=== PATIENT | male | born 1995 | race Caucasian/White ===

== ENCOUNTER 2025-04-19 17:29 | Emergency (ER) | payer OTHER, SELFPAY ==
[2025-04-19 17:32] VITALS: BP 166/85
--- NOTE | 2025-04-19 18:13 | ED.GENMED ---
History of Present Illness
General
Chief Complaint: Male Genito-Urinary Symptoms
Source: patient
Time Seen by Provider: 04/19/25 17:44
History of Present Illness
History of Present Illness:
Note:
CHIEF COMPLAINT(S)
Post-traumatic erectile dysfunction following penile trauma.
HISTORY OF PRESENT ILLNESS
The patient is a 29-year-old male who presented following reported trauma to the penis, which occurred when he fell the floor after getting up from bed and tripping while trying to go to the bathrom, patient reporting he had an erection at the time.
He reports that upon impact, his erection became flaccid immediately, but he did not experience significant pain initially or thereafter. He attempted to achieve an erection later that night, which was partially successful but described as 'soft.'
Over the subsequent days, he has been unable to achieve a full erection. He denies any penile pain, swelling, deformity, or significant urinary symptoms since the trauma. He has had normal urination without blood or discomfort and only minor twinges
but no persistent pain.
REVIEW OF SYSTEMS
- Genitourinary: Difficulty achieving a full erection post-trauma. No pain, swelling, or urinary symptoms noted.
- Additional systems were not discussed.
Past History
Past History
ED Past Medical History: Other (Psoriasis)
ED Past Surgical History: None
Social History
Tobacco: Non-smoker
Alcohol: Occasional
Drug: None
Personal: Single
Living: alone
Review of Systems
Review of Systems
All Other Systems: ROS reviewed and negative except as documented in HPI and ROS
Phy Exam
Physical Exam
Physical Exam:
GENERAL: Alert , in no apparent distress
EYE: conjunctiva clear
Head: Normocephalic atraumatic
NECK: Supple,
ENT: mmm.
LUNGS: no acute respiratory distress
GENITOURINARY: Circumcised. There is no penile swelling, edema, ecchymosis, abrasions or lacerations. No urethral discharge or blood, testicles nontender and nonedematous, no hernias appreciated. Positive cremasteric reflex bilateral
NEUROLOGICAL: Alert and oriented
SKIN: Warm and dry, skin intact.
MUSCULOSKELETAL: well perfused.
PSYCH: Normal and appropriate interaction.
Scores
Heart Failure Risk
Heart Failure Risk Score: Not Applicable
Heart Score for Chest Pain Patients
STEMI patient?: Not applicable
Withdrawal Assessment of Alcohol
Withdrawal Assessment Completed?: Not applicable
Course
Orders/Labs/Results
Orders:
Orders
04/19/25 18:08
Urinalysis Reflex To Culture Urgent
Date Specimen was Collected: 04/19/25
Time Specimen was Collected: 18:07
Urine Microscopic Reflex Cult Urgent
Abnormal Lab Results
04/19/25
18:08
Urine Ketones 3+ A
(Negative)
Urine Bacteria (Reflex) Few A
(Negative)
Urine Albumin (Reflex) 1+ A
(Neg - Trace)
Vital Signs
Initial and Last Documented VS:
Initial Vital Signs
Temp Pulse Resp BP Pulse Ox
98.1 F 94 17 166/85 99
04/19/25 17:32 04/19/25 17:32 04/19/25 17:32 04/19/25 17:32 04/19/25 17:32
Last Documented Vital Signs
Temp Pulse Resp BP Pulse Ox
98.1 F 94 17 166/85 99
04/19/25 17:32 04/19/25 17:32 04/19/25 17:32 04/19/25 17:32 04/19/25 17:32
MDM/Problems Addressed
Differential Diagnosis Includes:
The Differential Diagnosis includes, in no particular order and is not limited to:
1. Penile fracture
2. Post-traumatic erectile dysfunction
3. Peyronies disease
4. Urethral injury
5. Vascular injury
6. Psychological erectile dysfunction
7. Hypogonadism
8. Neurogenic erectile dysfunction
9. Infection or inflammation
10. Asymptomatic urinary tract infection
MDM/Problems Addressed:
Will send urinalysis for further evaluation. Will also contact urology to discuss but my suspicion for penile fracture is low and patient will likely need further outpatient workup with urology. Communication with urology to determine if any
additional testing, such as imaging, is required. If penile trauma is suspected, an MRI may be indicated at the direction of the urologist.
*Pulse Oximetry
Patient hypoxic: no
Comment: 99%
*Critical Care Note
Total Time (30-74mins, 75-104mins- exclusive of procedures): Not Applicable
Patient Management
Discussion with other providers: Air Value Tester
Escalation/DeEscalation of care consider admission/obs:
Case discussed with urology who states that as long as there is no obvious edema that there is no evidence for penile fracture and patient can follow-up as an outpatient. Urinalysis obtained and is without signs of infection. At this time patient
is stable for discharge home and outpatient follow-up. Information was provided.
ED Attending Note
-
Portions of this chart may have been created with voice recognition software.� Occasional wrong word or��sound alike� substitutions may have occurred due to the inherent limitations of voice recognition software.
Discharge Plan
Departure
Patient Disposition: Home (Routine Discharge)
Date of Disposition: 04/19/25
Time of Disposition: 18:13
Patient with high blood pressure during this ER visit?: Yes
Discharge Problem:
Erectile disorder
Instructions: Sex Problems (DC)
Referrals:
Guillermo Manzano MD [Active, Urology]
Referral Note: Urology - Please call for appointment
Interventions
Interventions:
*Risk Screen - Suicide Last Done: 04/19/25 17:34
*General Assessment Last Done: 04/19/25 17:34
*Neglect/Abuse Screening Last Done: 04/19/25 17:34
*ED COVID-19 Vaccine History Last Done: 04/19/25 17:34
*Nursing Disposition Last Done: 04/19/25 18:59
ED-Male Genitourinary Assessment Last Done: 04/19/25 18:04
Discharge Date and Time
Discharge Date/Time: 04/19/25 18:59
Print Language: CENTRAL AFRICAN
[2025-04-19 18:15] LABS: Urine Albumin 1+ (Neg - Trace); Urine Bilirubin Negative (Negative); Urine Character Clear (Clear); Urine Color Yellow; Urine Glucose Negative (Negative); Urine Ketone 3+ (Negative); Urine Leukocyte Negative (Negative); Urine Nitrite Negative (Negative); Urine Occult Blood Negative (Negative); Urine Specific Gravity 1.025 (<1.030); Urine Urobilinogen Negative (Neg - 1+)
[2025-04-19 18:55] LABS: Urine Squamous Cell 0-2 /LPF (Few)
[2025-04-19 18:56] LABS: Urine Bacteria Few (Negative); Urine Red Blood Cell 0-2 /HPF (0-2); Urine White Cell 0-2 /HPF (0-5)
== END 2025-04-19 18:59 | disposition home or self-care (01) ==
LOC: EMR 17:29
PROVIDERS: Physician Assistant Medical; EMERGENCY PHYSICIAN Student in an Organized Health Care Education/Training Program
DX: N52.9 Male erectile dysfunction, unspecified (principal); W06.XXXA Fall from bed, initial encounter; R03.0 Elevated blood-pressure reading, without diagnosis of hypertension
CPT/HCPCS: 99282; 81003; 81015